=== PATIENT | female | born 1995 | race American Indian/Alaskan Native ===

== ENCOUNTER 2019-10-27 12:20 | Emergency (ER) | payer SELFPAY ==
[2019-10-27 12:27] VITALS: BP 112/78
--- NOTE | 2019-10-27 13:12 | Emergency Department Report ---
Chief Complaint: Sore Throat Stated Complaint: THROAT PAIN Time Seen by Provider: 10/27/19 12:53 - HPI History of Present Illness: 24-year-old -[place] female presents to the emergency room complaining of lymph node enlargement and states it is difficult to swallow x2 days. Patient denies any fever chills no nausea no vomiting no sore throat. Patient reports no past medical history currently takes no medications on a daily basis and has no known drug allergies. - Exam Vital Signs: Vital Signs 10/27/19 10/27/19 12:24 12:27 Temperature 98.7 F 98.7 F Pulse Rate 82 82 Respiratory 18 16 Rate Blood Pressure 112/78 Blood Pressure 112/78 [Left] O2 Sat by Pulse 100 100 Oximetry Physical Exam: Gen: alert oriented NAD patient is nontoxic sitting comfortably no strabismus no drooling HEENT ENT: Oral mucosa is moist pharynx is patent tonsils are hypertrophic through nonerythematous no exudate appreciated no abscesses appreciated does have some lymphadenopathy bilateral. No drooling no trismus no abscesses in the mouth. Cardic: regular rate and rhythm no murmurs appreciated Resp: Clear to auscultation bilateral no wheezing no rales or rhonchi. Abdomen: Soft nontender nondistended normal bowel sounds. MSE screening note: Focused history and physical exam performed. Due to findings the following was ordered: 24-year-old -[place] female presents to the emergency room complaining of lymph node enlargement and states it is difficult to swallow x2 days. Patient denies any fever chills no nausea no vomiting no sore throat. Patient reports no past medical history currently takes no medications on a daily basis and has no known drug allergies. Patient is nontoxic no acute distress sitting comfortably discussed with patient she can follow-up at urgent care or primary care provider. Patient be referred to Dr. Briggs and [facility]. ED Disposition for MSE Disposition: Z- MED SCREENING EXAM-LEFT Is pt being admited?: No Does the pt Need Aspirin: No Condition: Stable Additional Instructions: Please take Tylenol or ibuprofen for pain management. Follow-up in urgent care or primary care clinic. I have listed several below for your convenience. Referrals: OBDULIO CARVALHO MD [Staff Physician] - 3-5 Days [facility] [Provider Group] - 3-5 Days [facility] [Outside] - 3-5 Days [facility] [Outside] - 3-5 Days
== END 2019-10-27 13:13 | disposition left against medical advice (07) ==
LOC: ED 12:20
DX: J02.9 Acute pharyngitis, unspecified (principal)
CPT/HCPCS: 99281

== ENCOUNTER 2021-03-15 09:19 | Emergency (ER) | payer SELFPAY ==
[2021-03-15 09:24] VITALS: BP 103/74
[2021-03-15] MEDS ORDERED: ONDANSETRON 4 MG ODT TAB PO ONE (09:45)
[2021-03-15] MEDS ORDERED: BENZONATATE 100 MG CAP PO ONE (09:45)
--- NOTE | 2021-03-15 09:53 | Emergency Department Report ---
HPI - General Chief Complaint: Nausea/Vomiting/Diarrhea Time Seen by Provider: 03/15/21 09:44 - HPI HPI: 25-year-old -[place] female presents to the emergency department with a complaint of a 6-day history of nausea with vomiting, cough, shortness of breath, and subjective fever. She denies any past medical history. She denies any tobacco or illicit drug use. No recent travel. The patient significant other is currently here and being seen for some similar symptoms. She is not vaccinated against COVID-19 or influenza. She has tried [id number] TheraFlu and Robitussin, but says that she vomited up these medications. ED Past Medical Hx - Past Medical History Previous Medical History?: No - Surgical History Past Surgical History?: No - Social History Smoking Status: Never Smoker Substance Use Type: None - Medications Home Medications: Home Medications Medication Instructions Recorded Confirmed Last Taken Type Albuterol Mdi (or & Nicu Only) 2 puff IH QID PRN #8.5 gram 03/15/21 Unknown Rx [ProAir HFA Inhaler] Benzonatate [Tessalon Perles] 100 mg PO Q8HR PRN #20 capsule 03/15/21 Unknown Rx Nitrofurantoin Loíza/M-Cryst 100 mg PO Q12HR #14 capsule 03/15/21 Unknown Rx [Macrobid CAP] Ondansetron [Zofran Odt] 4 mg PO Q8HR PRN #15 tab.rapdis 03/15/21 Unknown Rx ED Review of Systems ROS: Stated complaint: SOB, FEVER,HEADACHE NAUSEA VOMITING Other details as noted in HPI Comment: All other systems reviewed and negative Constitutional: chills, fever (Subjective) Eyes: denies: eye pain, vision change ENT: congestion. denies: ear pain Respiratory: cough, shortness of breath Cardiovascular: denies: chest pain, palpitations Gastrointestinal: nausea, vomiting. denies: abdominal pain Genitourinary: denies: dysuria, discharge Musculoskeletal: denies: joint swelling, arthralgia Skin: denies: rash, lesions Neurological: denies: weakness, numbness Physical Exam - Physical Exam Vital Signs: Vital Signs 03/15/21 09:22 Temperature 98.6 F Pulse Rate 87 Respiratory 16 Rate Blood Pressure 103/74 [Left] O2 Sat by Pulse 96 Oximetry Physical Exam: GENERAL: The patient is well-developed well-nourished. HENT: Normocephalic. Atraumatic. Patient has moist mucous membranes. Oropharynx is clear without tonsillar hypertrophy, erythema or exudates. No drooling or trismus. EYES: Extraocular motions are intact. NECK: Supple. Trachea is midline. CHEST/LUNGS: Clear to auscultation. A productive sounding cough heard during examination. No tachypnea or accessory muscle use. HEART/CARDIOVASCULAR: Regular. There is no tachycardia. There is no murmur. ABDOMEN: Abdomen is soft, nontender. Patient has normal bowel sounds. There is no abdominal distention. SKIN: Skin is warm and dry. NEURO: The patient is awake, alert, and oriented. The patient is cooperative. The patient has no focal neurologic deficits. Normal speech. MUSCULOSKELETAL: There is no tenderness or deformity. There is no limitation range of motion. ED Course Vital Signs 03/15/21 09:22 Temperature 98.6 F Pulse Rate 87 Respiratory 16 Rate Blood Pressure 103/74 [Left] O2 Sat by Pulse 96 Oximetry ED Medical Decision Making - Lab Data Lab Results 03/15/21 Range/Units Unknown Urine Color Straw (Yellow) Urine Turbidity Slightly cloudy (Clear) Urine pH 5.0 (5.0-7.0) Ur Specific [place] 1.015 (1.003-1.030) Urine Protein 30 mg/dl (Negative) mg/dL Urine Glucose (UA) Negative (Negative) mg/dL Urine Ketones 2+ (Negative) mg/dL Urine Blood Negative (Negative) Urine Nitrite Negative (Negative) Ur Reducing Substances Not Reportable Urine Bilirubin Negative (Negative) Urine Ictotest Not Reportable Urine Urobilinogen < 2.0 (<2.0) mg/dL Ur Leukocyte Esterase Moderate (Negative) Urine WBC (Auto) 11.0 H (0.0-6.0) /HPF Urine RBC (Auto) 6.0 (0.0-6.0) /HPF U Epithel Cells (Auto) 36.0 H (0-13.0) /HPF Urine Mucus Few /HPF Urine HCG, Qual Negative (Negative) - Radiology Data Radiology results: image reviewed interpreted by me: Chest x-ray does not show any acute process. There are no pleural effusions, obvious pneumonia and there is no pneumothorax. No widened mediastinum. - Medical Decision Making This patient presents with a 6-day history of nausea with vomiting, cough, shortness of breath, subjective fever, body aches. No focus of infection seen on physical examination. She does not appear in any respiratory or acute distress. Chest x-ray does not show any pneumonia, pleural effusions, pneumothorax, widened mediastinum, or any other acute process. Urinalysis shows a mild urinary tract fashion and mild dehydration. The patient is not . Vital signs reassuring throughout her ED course including being afebrile. Overall this appears most consistent with a viral syndrome. There has been no vomiting in the emergency department. The patient has been given a prescription for an albuterol inhaler, and antiemetic, and antitussive, and she has been given a prescription for an antibiotic for her urinary tract infection. We discussed seeking outpatient COVID-19 testing. Critical Care Time: No Critical care attestation.: If time is entered above; I have spent that time in minutes in the direct care of this critically ill patient, excluding procedure time. ED Disposition Clinical Impression: Viral syndrome UTI (urinary tract infection) Qualifiers: Urinary tract infection type: acute cystitis Hematuria presence: without hematuria Qualified Code(s): N30.00 - Acute cystitis without hematuria Upper respiratory infection Qualifiers: URI type: unspecified URI Qualified Code(s): J06.9 - Acute upper respiratory infection, unspecified Nausea & vomiting Qualifiers: Vomiting type: unspecified Vomiting Intractability: non-intractable Qualified Code(s): R11.2 - Nausea with vomiting, unspecified Disposition: 01 HOME / SELF CARE / HOMELESS Is pt being admited?: No Condition: Stable Instructions: Urinary Tract Infection, Adult, Nausea and Vomiting, Adult, Viral Illness, Adult Additional Instructions: Please follow-up with a primary care physician in the next few days. I have given you a referral for a local primary care physician, Dr. Pittman, and a primary care clinic, [facility]. Increase your oral rehydration. Take all medications only as prescribed. Most of your symptoms appear consistent with a viral syndrome or upper respiratory infection. Unfortunately I am unable to test you for COVID-19 at this time. I do recommend that you seek outpatient COVID-19 testing. This can be done at some primary care offices, some urgent cares, and there should be a listing of testing facilities through the Critical access hospital. Return to the emergency department with any worsening of your symptoms, new or concerning symptoms not addressed during this current emergency department visit, or with any acute distress. Prescriptions: Nitrofurantoin Loíza/M-Cryst [Macrobid CAP] 100 mg PO Q12HR #14 capsule Albuterol Mdi (or & Nicu Only) [ProAir HFA Inhaler] 2 puff IH QID PRN #8.5 gram PRN Reason: Shortness Of Breath Benzonatate [Tessalon Perles] 100 mg PO Q8HR PRN #20 capsule PRN Reason: Cough Ondansetron [Zofran Odt] 4 mg PO Q8HR PRN #15 tab.rapdis PRN Reason: Nausea Referrals: PRIMARY CAREMD [Primary Care Provider] - 3-5 Days OBDULIO PITTMAN MD [Staff Physician] - 3-5 Days [facility] [Provider Group] - 3-5 Days Time of Disposition: 12:23
--- NOTE | 2021-03-15 10:10 | XRay Report ---
CHEST 2 VIEWS INDICATION / CLINICAL INFORMATION: cough. COMPARISON: None available. FINDINGS: SUPPORT DEVICES: None. HEART / MEDIASTINUM: No significant abnormality. LUNGS / PLEURA: No significant pulmonary or pleural abnormality. No pneumothorax. ADDITIONAL FINDINGS: No significant additional findings. IMPRESSION: 1. No acute findings. Signer Name: Francis Medrano MD Signed: 03/15/2021 10:05 AM Workstation Name: [id number]
[2021-03-15 11:39] LABS: Mucus,Urine FEW /HPF
[2021-03-15 11:40] LABS: Bilirubin,Urine Negative (Negative); Color,Urine Straw (Yellow)
[2021-03-15 11:41] LABS: Blood,Urine Negative (Negative); HCG Qualitative,Urine Negative (Negative); Urobilinogen,Urine < 2.0 mg/dL (<2.0)
== END 2021-03-15 12:35 | disposition home or self-care (01) ==
LOC: ED 09:19
DX: B34.9 Viral infection, unspecified (principal); N39.0 Urinary tract infection, site not specified; J06.9 Acute upper respiratory infection, unspecified; R11.2 Nausea with vomiting, unspecified
CPT/HCPCS: 71046; 81001; 81025; 99283; Q0162